=== PATIENT | female | born 1945 | race African-American/Black ===

== ENCOUNTER 2018-06-05 12:20 | Emergency (ER) | payer OTHER ==
[~2018-06-05] VITALS: Ht 160 cm; Wt 68.9 kg
[~2018-06-05 12:20] MED LIST: GLIM2TAB2 PO; HYDR-2145 PO; LOVA20TA2 PO
--- NOTE | 2018-06-05 12:58 | PHYS DOC ---
Past Medical History Past Medical History: Diabetes-Type II, Hypertension Past Surgical History: Cholecystectomy Alcohol Use: None Drug Use: None Adult General Chief Complaint Chief Complaint: HAND PROBLEM HPI HPI Patient is a 72 year old female who presents complaining of right hand pain and numbness. This has been present for the past 2 weeks. She feels the pain in the palmar region, and numbness from the fingers distally. She has seen her primary care physician for this and was started on gabapentin without any improvement in the discomfort. She has seen what is presumably a neurologist since she reports that he stuck pins in her hands to see what was going on. Patient has had no relief with these therapies. Denies any recent trauma. Denies any headache or new weakness. Patient is uncertain as to what her blood sugar has been doing, relying on this test to be performed at her primary care physician office. She has run out of her valsartan for her hypertension but was planning on picking some up today.[] Review of Systems Review of Systems Constitutional: Denies fever or chills [] Eyes: Denies change in visual acuity, redness, or eye pain [] HENT: Denies nasal congestion or sore throat [] Respiratory: Denies cough or shortness of breath [] Cardiovascular: No chest pain or palpitations[] GI: Denies abdominal pain, nausea, vomiting, bloody stools or diarrhea [] : Denies dysuria or hematuria [] Musculoskeletal: Denies back pain, see history of present illness[] Integument: Denies rash or skin lesions [] Neurologic: Denies headache, focal weakness, see history of present illness[] Endocrine: Denies polyuria or polydipsia [] All other systems were reviewed and found to be within normal limits, except as documented in this note. Current Medications Current Medications Current Medications Medications (Trade) Dose Ordered Sig/Isidro Start Time Stop Time Status Last Admin Dose Admin Acetaminophen (Tylenol) 500 mg 1X ONCE 06/05/18 13:15 06/05/18 13:16 DC 06/05/18 13:12 500 MG Ibuprofen (Motrin) 200 mg 1X ONCE 06/05/18 13:00 06/05/18 13:01 DC 06/05/18 13:12 200 MG Allergies Allergies Allergies Coded Allergies Type Severity Reaction Last Updated Verified No Known Drug Allergies 11/14/14 No Physical Exam Physical Exam Constitutional: Well developed, well nourished, no acute distress, non-toxic appearance. [] HENT: Normocephalic, atraumatic, bilateral external ears normal, oropharynx moist, no oral exudates, nose normal. [] Eyes: PERRLA, EOMI, conjunctiva normal, no discharge. [] Neck: Normal range of motion, no tenderness, supple, no stridor. [] Cardiovascular:Heart rate regular rhythm, no murmur [] Lungs & Thorax: Bilateral breath sounds clear to auscultation [] Abdomen: Not examined. [] Skin: Warm, dry, no erythema, no rash. [] Back: No tenderness, no CVA tenderness. [] Extremities: Diffuse tenderness in the right hand, full active range of motion, FDS, FDP, and extensor mechanisms are all intact. 2 point discrimination is approximately 1 cm however this is symmetric with the left side. Bilaterally the fingertips are full to touch. No pain with axial loading of any of the bones.. [] Neurologic: Alert and oriented X 3, normal motor function, normal sensory function, no focal deficits noted. [] Psychologic: Affect normal, judgement normal, mood normal. [] Current Patient Data Vital Signs Vital Signs Date Time Temp Pulse Resp B/P (MAP) Pulse Ox O2 Delivery O2 Flow Rate FiO2 06/05/18 12:30 98.5 82 19 184/77 (112) 97 Room Air 98.5 Lab Values Laboratory Tests Test 06/05/18 13:15 White Blood Count 4.2 x10^3/uL (4.0-11.0) Red Blood Count 4.31 x10^6/uL (3.50-5.40) Hemoglobin 11.4 g/dL (12.0-15.5) L Hematocrit 35.9 % (36.0-47.0) L Mean Corpuscular Volume 83 fL (79-100) Mean Corpuscular Hemoglobin 27 pg (25-35) Mean Corpuscular Hemoglobin Concent 32 g/dL (31-37) Red Cell Distribution Width 13.8 % (11.5-14.5) Platelet Count 212 x10^3/uL (140-400) Neutrophils (%) (Auto) 52 % (31-73) Lymphocytes (%) (Auto) 37 % (24-48) Monocytes (%) (Auto) 8 % (0-9) Eosinophils (%) (Auto) 2 % (0-3) Basophils (%) (Auto) 0 % (0-3) Neutrophils # (Auto) 2.2 x10^3uL (1.8-7.7) Lymphocytes # (Auto) 1.6 x10^3/uL (1.0-4.8) Monocytes # (Auto) 0.3 x10^3/uL (0.0-1.1) Eosinophils # (Auto) 0.1 x10^3/uL (0.0-0.7) Basophils # (Auto) 0.0 x10^3/uL (0.0-0.2) Sodium Level 143 mmol/L (136-145) Potassium Level 3.3 mmol/L (3.5-5.1) L Chloride Level 102 mmol/L (98-107) Carbon Dioxide Level 29 mmol/L (21-32) Anion Gap 12 (6-14) Blood Urea Nitrogen 19 mg/dL (7-20) Creatinine 1.4 mg/dL (0.6-1.0) H Estimated GFR (Cockcroft-Gault) 44.5 Glucose Level 229 mg/dL (70-99) H Calcium Level 8.8 mg/dL (8.5-10.1) Laboratory Tests 06/05/18 13:15 Laboratory Tests 06/05/18 13:15 EKG EKG [] Radiology/Procedures Radiology/Procedures HAND RIGHT 3V History: right hand pain and swelling Comparison: None. Findings: 3 views right hand are submitted. No acute fracture or dislocation is identified. There is fusion of the fifth distal interphalangeal joint. Impression: 1. No acute osseous abnormality is identified.[] Course & Med Decision Making Course & Med Decision Making Pertinent Labs and Imaging studies reviewed. (See chart for details) ED course: Patient arrived, was placed in bed, and tolerated exam well. She is given medication for the discomfort which did help. After the return of the laboratory and imaging studies, these were discussed with the patient who voiced understanding. All questions were answered. Patient was discharged in improved condition. Medical decision making: There does not appear to be evidence of a DVT or arterial thrombosis given that the discomfort is isolated to the hand and fingers. Believe this to be more of a complication of the diabetes, the peripheral neuropathy, given that it is bilateral but worse on the right side currently. There is no evidence of an acute neuro or vascular compromise. No evidence of a fracture dislocation. No evidence of diabetic ketoacidosis. No evidence of a significant electrolyte abnormality.[] Dragon Disclaimer Dragon Disclaimer This electronic medical record was generated, in whole or in part, using a voice recognition dictation system. Departure Departure Impression: Primary Impression: Peripheral neuropathy Disposition: HOME, SELF-CARE Condition: IMPROVED Referrals: COURT VITALE MD (PCP) Follow-up in 2 days Patient Instructions: Diabetic Neuropathy Additional Instructions: Follow-up with your regular doctor in 2 days. Take your medication as prescribed. Return to the ER if worsening pain or any other concerns. Scripts Tramadol Hcl (TRAMADOL HCL) 50 Mg Tablet 50 MG PO Q6HRS PRN for PAIN, #20 TAB Prov: KIMBER CHEN DO 06/05/18 Meloxicam (MELOXICAM) 7.5 Mg Tablet 7.5 MG PO DAILY, #20 TAB Prov: KIMBER CHEN DO 06/05/18 Problem Qualifiers Primary Impression: Peripheral neuropathy Peripheral neuropathy type: polyneuropathy, unspecified Qualified Codes: G62.9 - Polyneuropathy, unspecified KIMBER CHEN DO Jun 05, 2018 12:58
[2018-06-05] MEDS ORDERED: IBUPROFEN 200 MG TABLET. PO ONE (13:00)
[2018-06-05] MEDS ORDERED: ACETAMINOPHEN 500 MG TABLET PO ONE (13:15)
--- NOTE | 2018-06-05 13:15 | RAD ---
HAND RIGHT 3V History: right hand pain and swelling Comparison: None. Findings: 3 views right hand are submitted. No acute fracture or dislocation is identified. There is fusion of the fifth distal interphalangeal joint. Impression: 1. No acute osseous abnormality is identified. Electronically signed by: Link Osman MD (06/05/2018 1:12 PM) [facility]
[2018-06-05 13:42] LABS: BASO % 0 % (0-3); EOS # 0.1 x10^3/uL (0.0-0.7); EOS % 2 % (0-3); HEMATOCRIT 35.9 % (36.0-47.0); HEMOGLOBIN 11.4 g/dL (12.0-15.5); LYMPH # 1.6 x10^3/uL (1.0-4.8); LYMPH % 37 % (24-48); MEAN CORPUSCULAR HEMOGLOBIN 27 pg (25-35); MEAN CORPUSCULAR HGB CONC 32 g/dL (31-37); MEAN CORPUSCULAR VOLUME 83 fL (79-100); MONO # 0.3 x10^3/uL (0.0-1.1); MONO % 8 % (0-9); NEUT # 2.2 x10^3uL (1.8-7.7); NEUT % 52 % (31-73); PLATELET COUNT 212 x10^3/uL (140-400); RED BLOOD COUNT 4.31 x10^6/uL (3.50-5.40); RED CELL DISTRIBUTION WIDTH 13.8 % (11.5-14.5); WHITE BLOOD COUNT 4.2 x10^3/uL (4.0-11.0)
[2018-06-05 13:49] LABS: CALCIUM 8.8 mg/dL (8.5-10.1); CREATININE 1.4 mg/dL (0.6-1.0); GFR 44.5; POTASSIUM 3.3 mmol/L (3.5-5.1)
[2018-06-05 14:00] VITALS: BP 184/79
[2018-06-05] MEDS ORDERED: MELO7.5T29 PO (14:10)
[2018-06-05] MEDS ORDERED: TRAM50TA PO (14:10)
== END 2018-06-05 14:20 | disposition home or self-care (01) ==
LOC: ER 12:20
DX: E11.42 Type 2 diabetes mellitus with diabetic polyneuropathy (principal); M79.641 Pain in right hand; I10 Essential (primary) hypertension; Z90.49 Acquired absence of other specified parts of digestive tract
CPT/HCPCS: 36415; 73130; 80048; 85025; 99284

== ENCOUNTER 2019-08-13 14:55 | Inpatient (IN) | payer MEDICARE, OTHER ==
[~2019-08-13] VITALS: Ht 162.6 cm; Wt 63.1 kg
[~2019-08-13 14:55] MED LIST changes: -GLIM2TAB2 PO; +GLIM2TAB7 PO; +MELO7.5T29 PO; +TRAM50TA PO
[2019-08-13 15:27] LABS: BASO % 0 % (0-3); EOS % 1 % (0-3); HEMATOCRIT 31.9 % (36.0-47.0); HEMOGLOBIN 10.4 g/dL (12.0-15.5); LYMPH # 1.2 x10^3/uL (1.0-4.8); LYMPH % 25 % (24-48); MEAN CORPUSCULAR HEMOGLOBIN 27 pg (25-35); MEAN CORPUSCULAR HGB CONC 33 g/dL (31-37); MEAN CORPUSCULAR VOLUME 84 fL (79-100); MONO # 0.4 x10^3/uL (0.0-1.1); MONO % 8 % (0-9); NEUT # 3.3 x10^3/uL (1.8-7.7); NEUT % 66 % (31-73); PLATELET COUNT 249 x10^3/uL (140-400); RED BLOOD COUNT 3.81 x10^6/uL (3.50-5.40); RED CELL DISTRIBUTION WIDTH 14.6 % (11.5-14.5); WHITE BLOOD COUNT 4.9 x10^3/uL (4.0-11.0)
[2019-08-13 15:37] LABS: CALCIUM 8.6 mg/dL (8.5-10.1); CREATININE 1.5 mg/dL (0.6-1.0)
[2019-08-13 15:42] LABS: ALBUMIN 3.4 g/dL (3.4-5.0); ALBUMIN/GLOBULIN RATIO 0.9 (1.0-1.7); TOTAL BILIRUBIN 0.1 mg/dL (0.2-1.0)
[2019-08-13] MEDS ORDERED: DEXTROSE 50% 25 GM / 50ML DISP.SYRIN. IV ONE ×2 (16:49→17:00)
--- NOTE | 2019-08-13 19:53 | PHYS DOC ---
Past Medical History Past Medical History: Diabetes-Type II, High Cholesterol, Hypertension, Other Additional Past Medical Histor: NEUROPATHY Past Surgical History: Cholecystectomy Smoking Status: Former Smoker Alcohol Use: None Drug Use: None General Adult EDM: Chief Complaint: BLOOD SUGAR PROBLEM HPI: HPI: Patient is a 73 year old female with history of diabetes type 2, high cholesterol, hypertension, who presents to the ED today complaining of her blood sugars being up and down since last night. Patient is a very poor historian. Does not know the numbers but states at some point to the blood glucose was 188 when it went down but she does not know the number. Review of Systems: Review of Systems: Constitutional: Denies fever or chills. [] Eyes: Denies change in visual acuity. [] HENT: Denies nasal congestion or sore throat. [] Respiratory: Denies cough or shortness of breath. [] Cardiovascular: Denies chest pain or edema. [] GI: Denies abdominal pain, nausea, vomiting, bloody stools or diarrhea. [] : Denies dysuria. [] Musculoskeletal: Denies back pain or joint pain. [] Integument: Denies rash. [] Neurologic: Denies headache, focal weakness or sensory changes. [] Endocrine: Reports hypoglycemia Lymphatic: Denies swollen glands. [] Psychiatric: Denies depression or anxiety. [] Heart Score: Risk Factors: Risk Factors: DM, Current or recent (<one month) smoker, HTN, HLP, family history of CAD, obesity. Risk Scores: Score 0 - 3: 2.5% MACE over next 6 weeks - Discharge Home Score 4 - 6: 20.3% MACE over next 6 weeks - Admit for Clinical Observation Score 7 - 10: 72.7% MACE over next 6 weeks - Early Invasive Strategies Current Medications: Current Medications Medications (Trade) Dose Ordered Sig/Isidro Start Time Stop Time Status Last Admin Dose Admin Dextrose (Dextrose 50%-Water Syringe) 25 gm 1X ONCE 08/13/19 17:00 08/13/19 17:01 DC 08/13/19 16:50 25 GM Allergies: Allergies: Allergies Coded Allergies Type Severity Reaction Last Updated Verified No Known Drug Allergies 11/14/14 No Physical Exam: PE: Constitutional: Well developed, well nourished, no acute distress, non-toxic appearance. [] HENT: Normocephalic, atraumatic, bilateral external ears normal, oropharynx moist, no oral exudates, nose normal. [] Eyes: PERRLA, EOMI, conjunctiva normal, no discharge. [] Neck: Normal range of motion, no tenderness, supple, no stridor. [] Cardiovascular:Heart rate regular rhythm, no murmur [] Lungs & Thorax: Bilateral breath sounds clear to auscultation [] Abdomen: Bowel sounds normal, soft, no tenderness, no masses, no pulsatile masses. [] Skin: Warm, dry, no erythema, no rash. [] Back: No tenderness, no CVA tenderness. [] Extremities: No tenderness, no cyanosis, no clubbing, ROM intact, no edema. [] Neurologic: Alert and oriented X 3, normal motor function, normal sensory function, no focal deficits noted. [] Psychologic: Affect normal, judgement normal, mood normal. [] Current Patient Data: Labs: Laboratory Tests Test 08/13/19 15:16 08/13/19 15:20 08/13/19 16:48 08/13/19 17:04 Glucose (Fingerstick) 84 mg/dL (70-99) 20 mg/dL (70-99) *L 164 mg/dL (70-99) H White Blood Count 4.9 x10^3/uL (4.0-11.0) Red Blood Count 3.81 x10^6/uL (3.50-5.40) Hemoglobin 10.4 g/dL (12.0-15.5) L Hematocrit 31.9 % (36.0-47.0) L Mean Corpuscular Volume 84 fL (79-100) Mean Corpuscular Hemoglobin 27 pg (25-35) Mean Corpuscular Hemoglobin Concent 33 g/dL (31-37) Red Cell Distribution Width 14.6 % (11.5-14.5) H Platelet Count 249 x10^3/uL (140-400) Neutrophils (%) (Auto) 66 % (31-73) Lymphocytes (%) (Auto) 25 % (24-48) Monocytes (%) (Auto) 8 % (0-9) Eosinophils (%) (Auto) 1 % (0-3) Basophils (%) (Auto) 0 % (0-3) Neutrophils # (Auto) 3.3 x10^3/uL (1.8-7.7) Lymphocytes # (Auto) 1.2 x10^3/uL (1.0-4.8) Monocytes # (Auto) 0.4 x10^3/uL (0.0-1.1) Eosinophils # (Auto) 0.0 x10^3/uL (0.0-0.7) Basophils # (Auto) 0.0 x10^3/uL (0.0-0.2) Sodium Level 140 mmol/L (136-145) Potassium Level 4.0 mmol/L (3.5-5.1) Chloride Level 100 mmol/L (98-107) Carbon Dioxide Level 30 mmol/L (21-32) Anion Gap 10 (6-14) Blood Urea Nitrogen 33 mg/dL (7-20) H Creatinine 1.5 mg/dL (0.6-1.0) H Estimated GFR (Cockcroft-Gault) 41.0 BUN/Creatinine Ratio 22 (6-20) H Glucose Level 77 mg/dL (70-99) Calcium Level 8.6 mg/dL (8.5-10.1) Total Bilirubin 0.1 mg/dL (0.2-1.0) L Aspartate Amino Transferase (AST) 26 U/L (15-37) Alanine Aminotransferase (ALT) 16 U/L (14-59) Alkaline Phosphatase 46 U/L (46-116) Total Protein 7.0 g/dL (6.4-8.2) Albumin 3.4 g/dL (3.4-5.0) Albumin/Globulin Ratio 0.9 (1.0-1.7) L Laboratory Tests 08/13/19 15:20 Laboratory Tests 08/13/19 15:20 Vital Signs: Vital Signs Date Time Temp Pulse Resp B/P (MAP) Pulse Ox O2 Delivery O2 Flow Rate FiO2 08/13/19 19:00 88 18 158/67 (97) 95 Room Air 08/13/19 15:10 97.8 97.8 EKG: EKG: [] Radiology/Procedures: Radiology/Procedures: [] Course & Med Decision Making: Course & Med Decision Making Pertinent Labs and Imaging studies reviewed. (See chart for details) This is a 73-year-old female patient presenting to the ED today complaining of her blood glucose going up and down since last night. Patient is a poor historian. Does not have exact numbers. She does not know what insulin or diabetic medicine she is on. Blood glucose was 84 on arrival to the ED, it went down to 20, she was given D50. It went up to 164. Spoke with Dr. Saul patient was admitted. Dragon Disclaimer: Dragon Disclaimer: This electronic medical record was generated, in whole or in part, using a voice recognition dictation system. Departure Departure Impression: Primary Impression: Hypoglycemia Disposition: ADMITTED INPATIENT Condition: STABLE Referrals: COURT SAUL MD (PCP) Justicifation of Admission Dx: Justifications for Admission: Justification of Admission Dx: Yes Comments: hypoglycemia [employer]ATOR Aug 13, 2019 19:53
[2019-08-13] MEDS ORDERED: ACETAMINOPHEN 325 MG TABLET. PO PRN (20:00)
[2019-08-13] MEDS ORDERED: ONDANSETRON PF 4 MG/2 ML VIAL. IV PRN (20:00)
[2019-08-13 20:55] VITALS: BP 143/49
[2019-08-13] MEDS ORDERED: IV DEXTROSE 5% - 0.9 % NACL 1,000 ML IV ONE (21:00)
--- NOTE | 2019-08-13 21:20 | NUR ---
RN was checking in on patient after transported from the ED to room 432. Patient was non-verbal at that time and was not following commands. RN checked patients glucose @ 3 and it was 12 at that time. RN gave patient an amp of D50 per protocol and glucose was rechecked at 2132 it went up to 245. MD was notified at 2144 of the blood glucose and orders were received at that time. RN will continue to monitor patient closely.
[2019-08-13] MEDS: DEXTROSE 50% 25 GM / 50ML DISP.SYRIN. IV PRN ×2 (21:25→23:27)
[2019-08-13] MEDS: IV DEXTROSE 10% 1,000 ML IV SCH (22:10)
--- NOTE | 2019-08-13 23:20 | NUR ---
RN checked patients glucose at 2320 and was 50. RN administered half an ampule of D50 at that time. Blood glucose was rechecked at 2345 glucose was then 140. MD paged at 2350 and then again at 0013 regarding the glucose. MD called back at 0025 and gave orders to check patients glucose hourly and if glucose less than 60 to give half an ampule of D50. RN will continue to monitor patient closely.
[2019-08-13 23:54] VITALS: BP 123/60
[2019-08-14 03:08] VITALS: BP 115/55
[2019-08-14] MEDS: DEXTROSE 50% 25 GM / 50ML DISP.SYRIN. IV PRN ×2 (03:57→05:17)
[2019-08-14 07:00] VITALS: BP 102/54
[2019-08-14 07:13] LABS: CALCIUM 8.3 mg/dL (8.5-10.1); CREATININE 1.3 mg/dL (0.6-1.0); GFR 48.3; POTASSIUM 3.6 mmol/L (3.5-5.1)
[2019-08-14] MEDS: IV DEXTROSE 10% 1,000 ML IV SCH ×3 (07:37→20:47)
[2019-08-14] MEDS ORDERED: traMADol 50 MG TABLET PO PRN (09:45)
[2019-08-14 11:01] VITALS: BP 110/41
--- NOTE | 2019-08-14 13:19 | HP ---
ADMIT DATE: 08/14/2019 CHIEF COMPLAINT: Low blood sugar. HISTORY OF PRESENT ILLNESS: A 73-year-old black female with a history of mild type 2 diabetes mellitus, takes glimepiride 1 mg as half of the 2 mg tablet daily for treatment. Her last A1c was about 6.5 3-4 months ago. She took her usual dose of half a tab on the morning prior to admission and had been eating normally, but apparently had confusion, episodes of weakness and found to have a low blood sugar of 20. Since then, she has been on D5 and D10, has required 3 separate infusions of D50 to raise her sugar back up the levels. She has not had D10 for about 4 hours now and feels better. MEDICATIONS: Other meds documented in the chart. ALLERGIES: No allergies are known. SOCIAL HISTORY: Lives with family. She is , nonsmoker, nondrinker. FAMILY HISTORY: Unremarkable. OBJECTIVE: ENT: All within normal limits. NECK: No masses, nodes or bruits. LUNGS: Clear. CARDIOVASCULAR: Regular rate. No tachycardia or murmur. ABDOMEN: Benign. EXTREMITIES: Unremarkable. NEUROLOGIC: Alert, appropriate, physiologic, nonfocal. She has her usual mildly altered affect from psychiatric disorder. ASSESSMENT: Persistent hypoglycemia secondary to glimepiride use. Otherwise, medically stable. PLAN: Continue D10 infusions and periodic D50 infusions until blood sugars recover. She and family are advised to discard her remaining glimepiride, she will never take them ____ or sulfonylureas again as risk greater than benefit. COURT VITALE MD DR: EPI/magi JOB#: [id number] / [id number]
[2019-08-14 15:00] VITALS: BP 142/50
[2019-08-14 19:00] VITALS: BP 120/54
[2019-08-14 23:00] VITALS: BP 102/46
[2019-08-15 03:00] VITALS: BP 105/51
[2019-08-15 07:15] VITALS: BP 123/55
--- NOTE | 2019-08-15 08:23 | PDOC ---
Provider Note Provider Note [id number] Justicifation of Admission Dx: Justifications for Admission: Justification of Admission Dx: Yes Altered Mental Status: Altered Mental Status Diabetic Urgency: Diabetic Urgency COURT VITALE MD Aug 15, 2019 08:23
--- NOTE | 2019-08-15 09:49 | DS ---
DATE OF DISCHARGE: 08/15/2019 HOSPITAL SUMMARY: A 73-year-old white female who takes low-dose glimepiride along with other meds for diabetes, came in with recurrent hypoglycemia. Her blood sugar was in the 20s a couple times in the ER and required amps of D50 periodically throughout the hospital stay. BMP showed a mildly elevated creatinine of 1.5, GFR 41 and with hydration, GFR improved to 48. The CBC showed mild anemia, normocytic, with hemoglobin 10.4. She received IV D10 and no oral diabetic meds were given and blood sugars have been stable now for more than 12 hours. She is eating and drinking and not able to be followed as an outpatient as her last dose of glimepiride was approximately 48 hours ago. FINAL DIAGNOSES: 1. Glimepiride/sulfonylurea-induced hypoglycemia. 2. Chronic kidney disease 3, stable. 3. Normocytic anemia, etiology undetermined. OPERATIONS, PROCEDURES, COMPLICATIONS, CONSULTATIONS: None. DISPOSITION: All meds remain the same except she will discontinue glimepiride permanently. May consider other oral agent if A1c goes higher, but her A1c has been relatively low despite a lower dose of glimepiride used. Normal diabetic diet. Good hydration. We will follow up in the office and schedule next appointment and follow the CKD and mild anemia as well, both of which are preexisting. COURT VITALE MD DR: EPI/magi JOB#: [id number] / [id number]
[2019-08-15 10:30] VITALS: BP 142/60
--- NOTE | 2019-08-15 11:58 | NUR ---
SW following. Discussed with RN, pt discharging home with self care. RN advised no SW needs.
--- NOTE | 2019-08-15 12:30 | NUR ---
Patient discharged home to family
== END 2019-08-15 12:30 | disposition home or self-care (01) | DRG 639 ==
LOC: ER 14:55 → 4 NORTH 20:33
PROVIDERS: ADMIT Family Medicine; ATTEND Family Medicine
DX: E11.649 Type 2 diabetes mellitus with hypoglycemia without coma (principal); D64.9 Anemia, unspecified; E11.22 Type 2 diabetes mellitus with diabetic chronic kidney disease; E78.00 Pure hypercholesterolemia, unspecified; I12.9 Hypertensive chronic kidney disease with stage 1 through stage 4 chronic kidney disease, or unspecified chronic kidney disease; N18.3 Chronic kidney disease, stage 3 (moderate); T38.3X5A Adverse effect of insulin and oral hypoglycemic [antidiabetic] drugs, initial encounter; Z87.891 Personal history of nicotine dependence; Z79.84 Long term (current) use of oral hypoglycemic drugs; Z90.49 Acquired absence of other specified parts of digestive tract; Y92.89 Other specified places as the place of occurrence of the external cause; Z79.4 Long term (current) use of insulin
CPT/HCPCS: 36415; 80048; 80053; 82962; 85025; 96374; 99285; J3490; J7042; G0378